=== PATIENT | male | born 1985 | race Two or more races ===

== ENCOUNTER 2017-02-09 13:12 | Emergency (ER) | payer OTHER ==
[2017-02-09 13:42] VITALS: RESP 20
[2017-02-09] MEDS ORDERED: Lidocaine 2% Viscous 100 ml PO STA (14:00)
[2017-02-09] MEDS ORDERED: Aluminum Hydroxide/Magnesium Hydroxide Susp (30 mL) PO STA (14:00)
--- NOTE | 2017-02-09 14:01 | C.PDOC ---
History Of Present Illness 31 y/o male presents to the ED with complains of burning in mouth, epigastric abdominal pain and pain with bowel movements for the past 3 days. Pt reports doing IV crystal meth and drank "G" 4 days ago. Pt states he was supposed to mix the "G" with water but just took it straight and felt burning immediately but swallowed anyway. The day after, burning and abdominal pain developed, states feels like throat is full but is able to swallow. Pt reports painful bowel movements. He took GasX without relief. Pt also complaining of anxiety. Pt saw PMD today who sent patient to ED for further evaluation. Denies drooling , throat swelling, chest pain, SOB, vomiting, diarrhea, fever or any other complaints. Time Seen by Provider: 02/09/17 13:52 Chief Complaint (Nursing): Abdominal Pain History Per: Patient History/Exam Limitations: no limitations Onset/Duration Of Symptoms: Days Current Symptoms Are (Timing): Still Present Severity: Moderate Location Of Pain/Discomfort: Epigastric Radiation Of Pain To:: None Quality Of Discomfort: Burning Associated Symptoms: denies: Fever, Chills, Vomiting, Chest Pain Exacerbating Factors: None Alleviating Factors: None Recent travel outside of the [place]: No Past Medical History Reviewed: Historical Data, Nursing Documentation, Vital Signs Vital Signs: Last Vital Signs Temp 98.2 F 02/09/17 16:05 Pulse 74 02/09/17 16:05 Resp 20 02/09/17 16:05 BP 125/82 02/09/17 16:05 Pulse Ox 98 02/09/17 16:05 Family History: States: Unknown Family Hx - Social History Hx Alcohol Use: Yes Hx Substance Use: Yes Review Of Systems Except As Marked, All Systems Reviewed And Found Negative. Constitutional: Negative for: Fever ENT: Positive for: Other (burning in mouth). Negative for: Throat Swelling Cardiovascular: Negative for: Chest Pain Respiratory: Negative for: Shortness of Breath Gastrointestinal: Positive for: Abdominal Pain. Negative for: Vomiting Psych: Positive for: Anxiety Physical Exam - Physical Exam Appears: Non-toxic, No Acute Distress Skin: Warm, Dry, No Rash Head: Atraumatic, Normacephalic Oral Mucosa: Moist, No Drooling Throat: Normal, No Erythema, No Exudate, Other (no swelling) Neck: Normal, Normal ROM, Supple Chest: Symmetrical Cardiovascular: Rhythm Regular, No Murmur Respiratory: Normal Breath Sounds, No Rales, No Rhonchi, No Wheezing Gastrointestinal/Abdominal: Bowel Sounds, Soft, Tenderness (epigastric and left mid abdomen), No Guarding, No Rebound Extremity: Bilateral: Atraumatic Neurological/Psych: Oriented x3, Normal Speech ED Course And Treatment - Laboratory Results Result Diagrams: 02/09/17 14:01 02/09/17 14:01 Lab Interpretation: No Acute Changes ECG: Interpreted By Me ECG Rhythm: Sinus Rhythm (with diffuse early repolarization) O2 Sat by Pulse Oximetry: 99 (room air) Pulse Ox Interpretation: Normal Progress Note: Plan: EKG, labs, UA, viscous lidocaine, pepcid, maalox Reevaluation Time: 16:10 Reassessment Condition: Improved (Patient better after medication.) Disposition Counseled Patient/Family Regarding: Studies Performed, Diagnosis, Need For Followup - Disposition Disposition: HOME/ ROUTINE Disposition Time: 16:11 Condition: IMPROVED Additional Instructions: Follow up with your doctor as an outpatient. Take Pepcid AC and Maalox twice a day. Keep your diet bland. Avoid recreational drug use. Instructions: Acute Abdominal Pain (ED), Polysubstance Abuse (ED) - Clinical Impression Clinical Impression: Abdominal pain, Polysubstance abuse - Scribe Statement The provider has reviewed the documentation as recorded by the Stephanie Wise Provider Attestation: All medical record entries made by the Stephanie were at my direction and personally dictated by me. I have reviewed the chart and agree that the record accurately reflects my personal performance of the history, physical exam, medical decision making, and the department course for this patient. I have also personally directed, reviewed, and agree with the discharge instructions and disposition.
[2017-02-09] MEDS ORDERED: Aluminum Hydroxide/Magnesium Hydroxide Susp (30 mL) ONE (15:02)
[2017-02-09 15:11] LABS: BASO # 0.1 K/uL (0.0-0.2); EOS # 0.1 K/uL (0.0-0.7); HEMATOCRIT 45.5 % (35.0-51.0); LYMPH # 2.1 K/uL (1.0-4.3); MONO # 0.9 K/uL (0.0-0.8)
[2017-02-09 15:12] LABS: BASO % 0.8 % (0.0-2.0); EOS % 1.2 % (0.0-4.0); LYMPH % 18.6 % (20.0-40.0); MEAN CORPUSCULAR HEMOGLOBIN 30.1 pg (27.0-31.0); MEAN CORPUSCULAR HGB CONC 32.7 g/dL (33.0-37.0); MEAN PLATELET VOLUME 10.8 fL (7.2-11.7); MONO % 8.5 % (0.0-10.0); NRBC % 0.2 % (0.0-2.0); RED CELL DISTRIBUTION WIDTH 13.2 % (11.5-14.5)
[2017-02-09 15:14] LABS: MEAN CELL VOLUME 92.1 fL (80.0-94.0)
[2017-02-09 15:25] LABS: CHLORIDE 99 mmol/L (98-107); POTASSIUM 4.4 mmol/L (3.6-5.2); SODIUM 137 mmol/L (132-148)
[2017-02-09 15:27] LABS: BILIRUBIN,TOTAL 0.7 mg/dL (0.2-1.3); GFR AFRICAN-AMERICAN > 60
[2017-02-09 15:28] LABS: ALB/GLOB RATIO 1.3 (1.0-2.1); ALKALINE PHOSPHATASE 50 U/L (38-126); ALT/SGPT 31 U/L (21-72); AST/SGOT 37 U/L (17-59); BLOOD UREA NITROGEN 12 mg/dL (9-20); CALCIUM 8.6 mg/dl (8.6-10.4); CARBON DIOXIDE 26 mmol/L (22-30); GLUCOSE,RANDOM 85 mg/dL (75-110); TOTAL PROTEIN 7.3 g/dL (6.3-8.3)
[2017-02-09 15:29] LABS: RBC URINE < 1 /hpf (0-3); URINE BILIRUBIN NEGATIVE (NEGATIVE); URINE BLOOD NEGATIVE (NEGATIVE); URINE COLOR Yellow (YELLOW); URINE GLUCOSE (UA) NORMAL (Normal); URINE KETONE 1+ mg/dL (NEGATIVE); URINE LEUKOCYTE ESTERASE NEG Leu/uL (Negative); URINE PROTEIN NEGATIVE (NEGATIVE); URINE UROBILINOGEN NORMAL mg/dL (0.2-1.0)
[2017-02-09 16:06] VITALS: BP 125/82; PULSE 74; TEMP 98.2
[2017-02-09 16:13] VITALS: O2SAT 99
--- NOTE | 2017-02-17 01:30 | CARD ---
APPROVED REPORT EKG Measurement Heart [id number] <Conclusion> Normal sinus rhythm Early repolarization Normal ECG
== END 2017-02-09 16:33 | disposition home or self-care (01) ==
LOC: C.ER 13:12
DX: F19.10 Other psychoactive substance abuse, uncomplicated (principal); R10.13 Epigastric pain
CPT/HCPCS: 80053; 81001; 83690; 85025; 93005; 99284; G0480